=== PATIENT | male | born 1930 | race Caucasian/White ===

== ENCOUNTER 2017-05-19 16:46 | Emergency (ER) | payer OTHER ==
[~2017-05-19] VITALS: Ht 177.8 cm; Wt 71.2 kg
[~2017-05-19 16:46] MED LIST: DONE5TAB56 PO; LEVO500T59 PO; LISI-334 PO; LISI-338 PO; LISI10TA PO; LISI1TAB5 PO; NITR100C62 PO; TAMS0.4C2 PO; TAMS0.4C97 PO
[2017-05-19 18:14] LABS: BASO % 1 % (0-3); EOS % 1 % (0-3); HEMATOCRIT 40.8 % (39.0-53.0); HEMOGLOBIN 14.6 g/dL (13.0-17.5); LYMPH # 0.9 x10^3/uL (1.0-4.8); LYMPH % 13 % (24-48); MEAN CORPUSCULAR HEMOGLOBIN 32 pg (25-35); MEAN CORPUSCULAR HGB CONC 36 g/dL (31-37); MEAN CORPUSCULAR VOLUME 89 fL (79-100); MONO % 6 % (0-9); NEUT % 81 % (31-73); PLATELET COUNT 237 x10^3/uL (140-400); RED BLOOD COUNT 4.56 x10^6/uL (4.30-5.70); RED CELL DISTRIBUTION WIDTH 13.8 % (11.5-14.5); WHITE BLOOD COUNT 7.4 x10^3/uL (4.0-11.0)
[2017-05-19] MEDS ORDERED: IV NORMAL SALINE 500ML BAG 500 ML IV SCH (18:15)
[2017-05-19 18:37] LABS: CALCIUM 8.9 mg/dL (8.5-10.1); CREATININE 1.2 mg/dL (0.7-1.3); GFR 57.4; POTASSIUM 3.7 mmol/L (3.5-5.1)
[2017-05-19 18:40] LABS: ALBUMIN 3.8 g/dL (3.4-5.0); ALBUMIN/GLOBULIN RATIO 1.5 (1.0-1.7); TOTAL BILIRUBIN 1.4 mg/dL (0.2-1.0); TOTAL PROTEIN 6.4 g/dL (6.4-8.2)
[2017-05-19 18:58] LABS: BILIRUBIN,URINE SMALL (NEG); GLUCOSE,URINE NEGATIVE (NEG); NITRITE,URINE POSITIVE (NEG); PROTEIN,URINE 30 mg/dL (NEG-TRACE); UROBILINOGEN,URINE 0.2 mg/dL (0.2 mg/dL)
[2017-05-19 19:05] LABS: BACTERIA,URINE MODERATE /HPF (0-FEW); RBC,URINE OCC /HPF (0-2); SQUAMOUS EPITHELIAL CELL,UR FEW /LPF; WBC,URINE >40 /HPF (0-4)
--- NOTE | 2017-05-19 20:24 | PHYS DOC ---
Past Medical History Past Medical History: Dementia, Hypertension, Unknown, Other Additional Past Medical Histor: BPH, MAJANO CATHETER Past Surgical History: No Surgical History, Other Additional Past Surgical Histo: PT POOR HISTORIAN Alcohol Use: None Drug Use: None Adult General Chief Complaint Chief Complaint: ABDOMINAL PAIN HPI HPI Patient is a 86 year old male who presents with complaint of syncopal episode. The patient was present with his niece at home and was ambulating when he started to feel lightheaded. The niece states that she helped the patient sit in a chair. Shortly after sitting down, the patient lurched forward and became unresponsive. The niece stated that this lasted for approximately 20-30 seconds. She states that the patient shortly regained consciousness after that time. She denied any convulsive activity during the spell. The patient regained baseline mental status shortly after coming responsive. The niece brought the patient to the emergency department for evaluation. Patient denied any chest pain associated with this episode and denies any shortness of breath. The patient states he feels at his baseline state of health. Patient does complain that he is having lower abdominal discomfort. The patient has history of chronic urinary retention and has had an indwelling Majano catheter in place for several months. Patient states that he has not had his catheter changed in several weeks. The patient's urine has been cloudy and foul-smelling over the past few days. Review of Systems Review of Systems Constitutional: Denies fever or chills [] Eyes: Denies change in visual acuity, redness, or eye pain [] HENT: Denies nasal congestion or sore throat [] Respiratory: Denies cough or shortness of breath [] Cardiovascular: Syncope, denies chest pain or edema [] GI: Abdominal pain, denies nausea, vomiting, bloody stools or diarrhea [] : Cloudy, foul-smelling urine [] Musculoskeletal: Denies back pain or joint pain [] Integument: Denies rash or skin lesions [] Neurologic: Denies headache, focal weakness or sensory changes [] Current Medications Current Medications Current Medications Medications (Trade) Dose Ordered Sig/Beto Start Time Stop Time Status Last Admin Dose Admin Ceftriaxone Sodium 50 ml @ 100 mls/hr 1X ONCE 05/19/17 19:15 05/19/17 19:44 DC 05/19/17 19:35 100 MLS/HR Sodium Chloride 500 ml @ 500 mls/hr Q1H 05/19/17 18:15 05/19/17 18:54 DC 05/19/17 18:54 500 MLS/HR Allergies Allergies Allergies Coded Allergies Type Severity Reaction Last Updated Verified No Known Drug Allergies 12/23/15 No Physical Exam Physical Exam Constitutional: Alert, afebrile, no acute distress. [] HENT: Normocephalic, atraumatic, bilateral external ears normal, oropharynx moist, no oral exudates, nose normal. [] Eyes: PERRLA, EOMI, conjunctiva normal, no discharge. [] Neck: Normal range of motion, no tenderness, supple, no stridor. [] Cardiovascular:Heart rate regular rhythm, no murmur [] Lungs & Thorax: Bilateral breath sounds clear to auscultation [] Abdomen: Bowel sounds normal, soft, minimal suprapubic tenderness to palpation, no guarding or rebound tenderness present, no masses, no pulsatile masses. : Indwelling Majano catheter in place, reducible right inguinal mass that is nontender to palpation [] Skin: Warm, dry, no erythema, no rash. [] Back: No tenderness, no CVA tenderness. [] Extremities: No tenderness, no cyanosis, no clubbing, ROM intact, no edema. [] Neurologic: Alert and oriented X 3, normal motor function, normal sensory function, no focal deficits noted. [] Current Patient Data Vital Signs Vital Signs Date Time Temp Pulse Resp B/P (MAP) Pulse Ox O2 Delivery O2 Flow Rate FiO2 05/19/17 17:13 97.9 61 18 161/88 (112) 99 Room Air 97.9 Lab Values Laboratory Tests Test 05/19/17 17:30 05/19/17 18:48 White Blood Count 7.4 x10^3/uL (4.0-11.0) Red Blood Count 4.56 x10^6/uL (4.30-5.70) Hemoglobin 14.6 g/dL (13.0-17.5) Hematocrit 40.8 % (39.0-53.0) Mean Corpuscular Volume 89 fL (79-100) Mean Corpuscular Hemoglobin 32 pg (25-35) Mean Corpuscular Hemoglobin Concent 36 g/dL (31-37) Red Cell Distribution Width 13.8 % (11.5-14.5) Platelet Count 237 x10^3/uL (140-400) Neutrophils (%) (Auto) 81 % (31-73) H Lymphocytes (%) (Auto) 13 % (24-48) L Monocytes (%) (Auto) 6 % (0-9) Eosinophils (%) (Auto) 1 % (0-3) Basophils (%) (Auto) 1 % (0-3) Neutrophils # (Auto) 5.9 x10^3uL (1.8-7.7) Lymphocytes # (Auto) 0.9 x10^3/uL (1.0-4.8) L Monocytes # (Auto) 0.4 x10^3/uL (0.0-1.1) Eosinophils # (Auto) 0.0 x10^3/uL (0.0-0.7) Basophils # (Auto) 0.0 x10^3/uL (0.0-0.2) Sodium Level 138 mmol/L (136-145) Potassium Level 3.7 mmol/L (3.5-5.1) Chloride Level 100 mmol/L (98-107) Carbon Dioxide Level 31 mmol/L (21-32) Anion Gap 7 (6-14) Blood Urea Nitrogen 18 mg/dL (8-26) Creatinine 1.2 mg/dL (0.7-1.3) Estimated GFR (Cockcroft-Gault) 57.4 BUN/Creatinine Ratio 15 (6-20) Glucose Level 118 mg/dL (70-99) H Calcium Level 8.9 mg/dL (8.5-10.1) Magnesium Level 2.0 mg/dL (1.8-2.4) Total Bilirubin 1.4 mg/dL (0.2-1.0) H Aspartate Amino Transferase (AST) 19 U/L (15-37) Alanine Aminotransferase (ALT) 20 U/L (16-63) Alkaline Phosphatase 53 U/L (46-116) Troponin I Quantitative < 0.017 ng/mL (0.000-0.055) Total Protein 6.4 g/dL (6.4-8.2) Albumin 3.8 g/dL (3.4-5.0) Albumin/Globulin Ratio 1.5 (1.0-1.7) Urine Collection Type U cath Urine Color Yellow Urine Clarity Clear Urine pH 6.0 Urine Specific [place] 1.020 Urine Protein 30 mg/dL (NEG-TRACE) Urine Glucose (UA) Negative mg/dL (NEG) Urine Ketones (Stick) Negative mg/dL (NEG) Urine Blood Negative (NEG) Urine Nitrite Positive (NEG) Urine Bilirubin Small (NEG) Urine Urobilinogen Dipstick 0.2 mg/dL (0.2 mg/dL) Urine Leukocyte Esterase Large (NEG) Urine RBC Occ /HPF (0-2) Urine WBC >40 /HPF (0-4) Urine Squamous Epithelial Cells Few /LPF Urine Bacteria Moderate /HPF (0-FEW) Urine Hyaline Casts Occasional /HPF Urine Mucus Slight /LPF Laboratory Tests 05/19/17 17:30 Laboratory Tests 05/19/17 17:30 EKG EKG Interpreted by me: Heart rate 64, sinus rhythm, normal intervals, leftward axis , no acute ST/T-wave abnormalities present [] Radiology/Procedures Radiology/Procedures One view AP chest x-ray interpreted by me: No infiltrate, no effusion, normal cardiac silhouette [] Course & Med Decision Making Course & Med Decision Making Pertinent Labs and Imaging studies reviewed. (See chart for details) Patient found have evidence of urinary tract infection. Patient's Majano catheter was changed in the emergency department. Patient was treated with IV Rocephin. The patient is tolerating oral intake and feels at his baseline state of health at this time. The patient will continue on oral Vantin for treatment of urinary tract infection. The patient was also found to have an inguinal hernia which is freely reducible at this time. Spoke with patient regarding continued surveillance of hernia and patient will be referred to Dr. Braun of general surgery for follow-up in one to 2 weeks. Advised follow-up with patient' s primary doctor in 1-2 days for reevaluation. Advised return emergency department for any worsening symptoms. Patient voiced understanding and in agreement with treatment plan. Dragon Disclaimer Dragon Disclaimer This electronic medical record was generated, in whole or in part, using a voice recognition dictation system. Departure Departure Impression: Primary Impression: Urinary tract infection Additional Impressions: Syncope Inguinal hernia Disposition: HOME, SELF-CARE Condition: IMPROVED Referrals: KIRSTIN VELAZQUEZ MD (PCP) Patient Instructions: Inguinal Hernia, Adult, Syncope, Urinary Tract Infection Additional Instructions: Follow-up with your primary doctor in 1-2 days for reevaluation. You may follow- up with Dr. Braun in 1-2 weeks for reevaluation of your inguinal hernia. Return to the emergency department for any worsening symptoms. Problem Qualifiers Primary Impression: Urinary tract infection Urinary tract infection type: catheter-associated UTI Indwelling urinary catheter type: indwelling urethral catheter Encounter type: initial encounter Qualified Codes: T83.511A - Infection and inflammatory reaction due to indwelling urethral catheter, initial encounter; N39.0 - Urinary tract infection, site not specified Additional Impressions: Syncope Syncope type: vasovagal syncope Qualified Codes: R55 - Syncope and collapse Inguinal hernia Obstruction and gangrene presence: without obstruction or gangrene Laterality : unilateral Recurrence: not specified as recurrent Qualified Codes: K40.90 - Unilateral inguinal hernia, without obstruction or gangrene, not specified as recurrent PRASAD VAUGHAN MD May 19, 2017 20:23
[2017-05-19] MEDS ORDERED: CEFP200T PO (20:25)
[2017-05-19 20:29] VITALS: BP 172/100
--- NOTE | 2017-05-20 07:34 | RAD ---
Portable chest, 05/19/2017: History: Syncope Comparison is made to a study from 12/23/2015. The heart size and pulmonary vascularity are normal. There is tortuosity of the thoracic aorta. No pulmonary infiltrates are seen. There is no evidence of pleural fluid. Moderate spurring is present in the spine. IMPRESSION: No acute cardiopulmonary abnormality is detected.
--- NOTE | 2017-05-20 10:09 | EKG ---
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
== END 2017-05-19 20:45 | disposition home or self-care (01) ==
LOC: ER 16:46
DX: T83.511A Infection and inflammatory reaction due to indwelling urethral catheter, initial encounter (principal); N39.0 Urinary tract infection, site not specified; R55 Syncope and collapse; K40.90 Unilateral inguinal hernia, without obstruction or gangrene, not specified as recurrent; I10 Essential (primary) hypertension; F03.90 Unspecified dementia, unspecified severity, without behavioral disturbance, psychotic disturbance, mood disturbance, and anxiety; N40.0 Benign prostatic hyperplasia without lower urinary tract symptoms; Y93.89 Activity, other specified; Y99.8 Other external cause status; Y92.89 Other specified places as the place of occurrence of the external cause
CPT/HCPCS: 36415; 51702; 71010; 80053; 81001; 83735; 84484; 85025; 87086; 93005; 96361; 96365; 99285; J0690; J7040

== ENCOUNTER 2018-02-02 17:30 | Emergency (ER) | payer OTHER ==
[2018-02-02] MEDS: LIDOCAINE 2% JELLY 6ML IN APPLICATOR. MM (17:52)
[2018-02-02] MEDS ORDERED: LIDOCAINE 2% JELLY 6ML IN APPLICATOR. MM (18:00)
[2018-02-02 18:08] LABS: BILIRUBIN,URINE NEGATIVE (NEG); CLARITY,URINE CLEAR; COLOR,URINE YELLOW; GLUCOSE,URINE NEGATIVE (NEG); NITRITE,URINE POSITIVE (NEG); PH,URINE 5.5; PROTEIN,URINE NEGATIVE (NEG-TRACE); UROBILINOGEN,URINE 0.2 mg/dL (0.2 mg/dL)
[2018-02-02 18:12] LABS: BACTERIA,URINE MANY /HPF (0-FEW)
[2018-02-02] MEDS: cefTRIAXone IM 1 GM VIAL IM (19:00)
== END 2018-02-02 20:55 | disposition home or self-care (01) ==
LOC: ER 17:30
DX: N39.0 Urinary tract infection, site not specified (principal); I10 Essential (primary) hypertension; F03.90 Unspecified dementia, unspecified severity, without behavioral disturbance, psychotic disturbance, mood disturbance, and anxiety
CPT/HCPCS: 51702; 81001; 87086; 96372; 99284-25; J0696

== ENCOUNTER 2018-03-03 01:31 | Emergency (ER) | payer OTHER ==
[2018-03-03] MEDS: LIDOCAINE 2% JELLY 6ML IN APPLICATOR. MM (02:20)
[2018-03-03 02:47] LABS: BILIRUBIN,URINE NEGATIVE (NEG); CLARITY,URINE CLOUDY; GLUCOSE,URINE NEGATIVE (NEG); NITRITE,URINE NEGATIVE (NEG); PROTEIN,URINE 30 mg/dL (NEG-TRACE); UROBILINOGEN,URINE 0.2 mg/dL (0.2 mg/dL)
[2018-03-03 03:02] LABS: BACTERIA,URINE MODERATE /HPF (0-FEW); COLOR,URINE BROWN; RBC,URINE TNTC /HPF (0-2); SQUAMOUS EPITHELIAL CELL,UR FEW /LPF
== END 2018-03-03 05:10 | disposition home or self-care (01) ==
LOC: ER 01:31
DX: R33.9 Retention of urine, unspecified (principal); N39.0 Urinary tract infection, site not specified; F03.90 Unspecified dementia, unspecified severity, without behavioral disturbance, psychotic disturbance, mood disturbance, and anxiety; I10 Essential (primary) hypertension; N40.0 Benign prostatic hyperplasia without lower urinary tract symptoms
CPT/HCPCS: 51702; 81001; 87086; 87186; 99284-25